=== PATIENT | female | born 1985 | race Caucasian/White ===

== ENCOUNTER 2017-04-07 17:39 | Inpatient (IN) | payer OTHER ==
[2017-04-07] MEDS ORDERED: Penicillin G Potassium IV* 5 MILLION.UNITS VIAL ONE (19:53)
[2017-04-07 19:55] LABS: Hematocrit 33 % (35-47); Hemoglobin 10.8 g/dl (12.0-16.0); Mean Corpuscular HGB Conc 33 g/dl (31-36); Mean Corpuscular Hemoglobin 26 pg (27-31); Mean Corpuscular Volume 78 fL (80-97); Mean Platelet Volume 12 um3 (7.4-10.4); Red Blood Count 4.19 10^6/ul (4.0-5.4); Red Cell Distribution Width 15 % (10.5-15); White Blood Count 12.4 10^3/ul (3.5-10.8)
[2017-04-08] MEDS ORDERED: Ibuprofen TAB* 600 MG ONE (01:54)
[2017-04-08] MEDS ORDERED: RHO D Immune Globulin (HUMAN)* 300 MCG = 1,500 I.U. INJ IM ONE (02:01)
[2017-04-08] MEDS ORDERED: Acetaminophen TAB* 325 MG PO PRN (02:01)
[2017-04-08] MEDS ORDERED: Witch Hazel PAD* JAR TOPICAL PRN (02:01)
[2017-04-08] MEDS ORDERED: Dibucaine 1% 28.35 GM TUBE PR PRN (02:01)
[2017-04-08] MEDS: Docusate CAP* 100 MG PO SCH ×3 (08:51→20:25)
[2017-04-08] MEDS: Ibuprofen TAB* 600 MG PO PRN ×3 (08:52→20:25)
[2017-04-08] MEDS ORDERED: Influenza VAC *QUAD* 2017-18* 0.5 ML SYRINGE IM ONE (09:00)
[2017-04-09 07:01] LABS: Hematocrit 32 % (35-47); Hemoglobin 10.4 g/dl (12.0-16.0); Mean Corpuscular HGB Conc 33 g/dl (31-36); Mean Corpuscular Hemoglobin 26 pg (27-31); Mean Corpuscular Volume 79 fL (80-97); Mean Platelet Volume 11 um3 (7.4-10.4); Red Blood Count 3.99 10^6/ul (4.0-5.4); Red Cell Distribution Width 16 % (10.5-15); White Blood Count 7.7 10^3/ul (3.5-10.8)
[2017-04-09] MEDS ORDERED: Influenza VAC *QUAD* 2017-18* 0.5 ML SYRINGE IM ONE (09:00)
[2017-04-09] MEDS ORDERED: Ferrous Gluconate TAB* 324 MG TAB PO SCH (09:00)
[2017-04-09] MEDS: Docusate CAP* 100 MG PO SCH (10:29)
[2017-04-09 11:44] VITALS: BP 107/64
== END 2017-04-09 16:00 | disposition home or self-care (01) | DRG 775 ==
LOC: MCHOBOUT 17:39 → MCHOB 19:33
PROVIDERS: ADMIT Midwife; ATTEND Midwife
PROC: 10E0XZZ Delivery of Products of Conception, External Approach (ICD-10-PCS; principal; 2017-04-08)
PROC: 10907ZC Drainage of Amniotic Fluid, Therapeutic from Products of Conception, Via Natural or Artificial Opening (ICD-10-PCS; 2017-04-08)
PROC: 4A1HXCZ Monitoring of Products of Conception, Cardiac Rate, External Approach (ICD-10-PCS; 2017-04-08)
PROC: 0HQ9XZZ Repair Perineum Skin, External Approach (ICD-10-PCS; 2017-04-08)
DX: O48.0 Post-term pregnancy (principal); O99.824 Streptococcus B carrier state complicating childbirth; Z37.0 Single live birth; Z3A.41 41 weeks gestation of pregnancy; O70.0 First degree perineal laceration during delivery
CPT/HCPCS: 36415; 85025; 85461; 86850; 86900; 86901; 90686; A9270-GY; J2540; J2790

== ENCOUNTER 2019-06-21 12:02 | Emergency (ER) | payer OTHER ==
[2019-06-21 12:14] VITALS: BP 127/74
--- NOTE | 2019-06-21 12:36 | UC ---
Complaint Female HPI - HPI Summary HPI Summary: Ms. Vazquez comes in complaining that she has had symptoms of yeast infection for about a week. She complains of itching and discomfort interval. She tried one day Monistat treatment [id number] which didn't work. She called her [facility] who recommended using a 3 day treatment. The 3 day treatment helped a lot including decreasing the swelling but didn't completely improve it. She has no dysuria and only minimal discharge. - History Of Current Complaint Chief Complaint: [facility] Stated Complaint: PERSONAL Time Seen by Provider: 06/21/19 12:28 Hx Obtained From: Patient Hx Last Menstrual Period: 2-3 years - has mirena IUD ?: No - she has an IUD Onset/Duration: Gradual Onset Timing: Constant Severity Initially: Moderate Severity Currently: Mild Pain Intensity: 0 Character: Burning - Itching Aggravating Factor(s): Nothing Alleviating Factor(s): Other - Monistat helped Associated Signs And Symptoms: Positive: Negative - Allergies/Home Medications Allergies/Adverse Reactions: Allergies Allergy/AdvReac Type Severity Reaction Status Date / Time No Known Allergies Allergy Verified 06/21/19 12:14 PMH/Surg Hx/FS Hx/Imm Hx - Surgical History Surgical History: None - Social History Alcohol Use: Rare Substance Use Type: None Smoking Status (MU): Never Smoked Tobacco Have You Smoked in the Last Year: No - Immunization History Most Recent Influenza Vaccination: fall 2013 Most Recent Tetanus Shot: 11/28/14 Most Recent Pneumonia Vaccination: never Review of Systems All Other Systems Reviewed And Are Negative: Yes Constitutional: Positive: Negative Skin: Positive: Negative Genitourinary: Positive: Vaginal/Penile Burning, Vaginal/Penile Itching, Vaginal /Penile Discharge Is Patient Immunocompromised?: No Physical Exam - Summary Physical Exam Summary: She is nontoxic in appearance with stable vital signs. Triage Information Reviewed: Yes Appearance: Well-Appearing, No Pain Distress Vital Signs: Initial Vital Signs Temp 98.4 F 06/21/19 12:10 Pulse 63 06/21/19 12:10 Resp 15 06/21/19 12:10 BP 127/74 06/21/19 12:10 Pulse Ox 100 06/21/19 12:10 Vital Signs Reviewed: Yes Abdominal Exam: Normal Complaint Female Dx - Course Course Of Treatment: I recommended since the Monistat 3 day treatment had helped significantly that we used Diflucan at this point. If she continues to have problems or increased shortness see her [facility] doctor - Differential Dx/Diagnosis Provider Diagnosis: Yeast infection Discharge ED - Sign-Out/Discharge Documenting (check all that apply): Patient Departure All imaging exams completed and their final reports reviewed: No Studies - Discharge Plan Condition: Stable Disposition: HOME Patient Education Materials: Yeast Infection (ED) Referrals: Kristen Roger MD [Primary Care Provider] - - Billing Disposition and Condition Condition: STABLE Disposition: Home
--- OUTSIDE RECORDS SUMMARY | 2019-06-22 16:23 | XMS REPORT ---
:1985 Author Name Jessica Simpson Address Unavailable Unavailable , Care Team Providers Name Role Phone Jessica Simpson Primary Care Physician Unavailable Allergies, Adverse Reactions, Alerts Allergy Code CodeSystem Reaction Severity Criticality Status Start Substance Date Moderate Medications Medication Medication Medication Start Stop Route Dose Status Fill Code CodeSystem Date Date Instructions RxNorm Relevant diagnostic tests/laboratory data Narrative No Information Procedures Procedure Code CodeSystem Target Date of Status Service Device Device Device Name Site Procedure Delivery Code Name UID Location SNOMED-CT () 2019-05-[address], [id number] Encounters/Encounter Diagnoses Encounter Encounter Diagnosis Diagnosis Diagnosis Date of Service Name Code Code Name CodeSystem Diagnosis Delivery Location [facility] [id number] SNOMED-CT 2019-05-28 [facility] [address] [place] [address], [id number] Vital Signs No Information Social History Element Description Description Start End Code CodeSystem AdditionalInfo Date Date SexAssignedAtBirth Female F AdministrativeGender 01-10 Hospital Discharge Instructions Reason For Referral Medical Equipment FDA Assessments
== END 2019-06-21 12:43 | disposition home or self-care (01) ==
LOC: UCEAST 12:02
DX: B37.3 Candidiasis of vulva and vagina (principal); Z97.5 Presence of (intrauterine) contraceptive device
CPT/HCPCS: 99212; G0463